=== PATIENT | male | born 1990 | race Caucasian/White ===

== ENCOUNTER 2017-09-07 11:57 | Emergency (ER) | payer MEDICAID ==
--- NOTE | 2017-09-07 13:07 | EDPHY ---
H & P Time Seen by Provider: 09/07/17 12:39 HPI/ROS: CHIEF COMPLAINT: Abdominal pain HISTORY OF PRESENT ILLNESS: Patient states he woke up at approximately 8 o' clock this morning with pain to his right lateral lower abdomen. He states he had some nausea and chills. It lasted a short while, he took his normal methadone dose this morning. Pain went away and did not return again until approximately 11:00 a.m. This morning. States he has had nothing like this prior. He has had some gas and a normal BM yesterday but none today. Denies urinary symptoms. Has not eaten breakfast and does not have much of an appetite today. No vomiting. Currently patient states pain is gone. Not worse with movement although did notice it hurt a little bit when he bent over earlier today. No recent trauma and does not recall any activities or movement yesterday that could have caused him injury. REVIEW OF SYSTEMS: Constitutional: No fever, no chills. Eyes: No discharge. ENT: No sore throat. Cardiovascular: No chest pain, no palpitations. Respiratory: No cough, no shortness of breath. Gastrointestinal: For HPI Genitourinary: No dysuria. Musculoskeletal: No back pain. Skin: No rashes. Neurological: No headache. General Appearance: Alert, no distress. Eyes: Pupils equal and round no pallor or injection. ENT, Mouth: Mucous membranes moist. Respiratory: There are no retractions, lungs are clear to auscultation. Cardiovascular: Regular rate and rhythm. Normal femoral pulses. No edema. Gastrointestinal: Abdomen is soft, no masses, bowel sounds normal. Mild tenderness to palpation right lower lateral abdomen above iliac crest. Negative McBurney's. Negative psoas sign. No peritoneal signs. Able to jump up and down without discomfort. Neurological: Awake and alert, no focal neurologic deficits. Skin: Warm and dry, no rashes. Musculoskeletal: Neck is supple nontender. Extremities are symmetrical, full range of motion, no edema. Psychiatric: Patient is oriented X 3, there is no agitation. Medical/surgical history: History of opiate addiction, on methadone approximately 5 years. Anxiety. No surgeries. Social history: Single, uses E cigarettes. Smoking Status: Current some day smoker Constitutional: Initial Vital Signs Temperature (C) 36.4 C 09/07/17 12:00 Heart Rate 75 09/07/17 12:00 Respiratory Rate 16 04/14/18 12:00 Blood Pressure 126/106 H 09/07/17 12:00 O2 Sat (%) 95 09/07/17 12:00 O2 Delivery Mode Room Air Allergies/Adverse Reactions: No Known Allergies Allergy (Unverified 09/07/17 12:00) Home Medications: Medication Instructions Recorded Methadone HCl 10 mg (RX) 10/25/13 Gabapentin 09/07/17 Medical Decision Making ED Course/Re-evaluation: Re-evaluation, he continues to be pain-free. UA unremarkable. Discussed watchful waiting and indications to return. Differential Diagnosis: Differential diagnosis includes but is not limited to appendicitis, constipation , gastroenteritis, abdominal wall strain. After evaluation low suspicion for acute surgical abdomen. No evidence of urinary symptoms. Possibly related to constipation as patient is methadone user. Discussed watchful waiting in detail with patient. He will return to this emergency department in the next few hours to 1-2 days if pain becomes more persistent or worse. Has primary care for follow-up as needed. Verbalized understanding of plan. Well- appearing and stable on discharge. - Data Points Laboratory Results: 09/07/17 13:15 Urine Color YELLOW Urine Appearance HAZY Urine pH 5.0 (5.0-7.5) Ur Specific [place] 1.032 H (1.002-1.030) Urine Protein NEGATIVE (NEGATIVE) Urine Ketones NEGATIVE (NEGATIVE) Urine Blood NEGATIVE (NEGATIVE) Urine Nitrate NEGATIVE (NEGATIVE) Urine Bilirubin NEGATIVE (NEGATIVE) Urine Urobilinogen NEGATIVE EU EU (0.2-1.0) Ur Leukocyte Esterase NEGATIVE (NEGATIVE) Urine Glucose NEGATIVE (NEGATIVE) Departure - Departure Clinical Impression: Abdominal pain Qualifiers: Abdominal location: right lower quadrant Qualified Code(s): R10.31 - Right lower quadrant pain Condition: Good Instructions: Abdominal Pain (ED) Additional Instructions: Please return to the emergency department if her pain becomes persistent or worse. Also if you have vomiting or other concerning new symptoms. Follow up with the primary care physician in 2-3 days for recheck. Referrals: NONE *PRIMARY CARE P,. [Primary Care Provider] - As per Instructions Renetta Alvarez MD [Medical Doctor] - As per Instructions
[2017-09-07 13:40] VITALS: BP 125/90
== END 2017-09-07 13:40 | disposition home or self-care (01) ==
DX: R10.31 Right lower quadrant pain (principal); F17.290 Nicotine dependence, other tobacco product, uncomplicated